=== PATIENT | female | born 1955 | race Caucasian/White ===

== ENCOUNTER 2023-02-25 12:59 | Emergency (ER) | payer MEDICARE, OTHER ==
[2023-02-25] MEDS ORDERED: Aspirin 81 MG Tab.Chew ONE (13:11)
[2023-02-25 13:12] LABS: BASOPHILS ABSOLUTE AUTO 0.05 10^3/uL (0.00-0.10); BASOPHILS PERCENT AUTO 0.6 % (0.0-1.0); EOSINOPHILS ABSOLUTE AUTO 0.31 10^3/uL (0.10-0.30); EOSINOPHILS PERCENT AUTO 3.9 % (1.0-3.0); HEMATOCRIT 42.5 % (37.0-47.0); HEMOGLOBIN 13.8 g/dL (12.0-16.0); IMMATURE GRAN ABSOLUTE AUTO 0.04 10^3/uL (0.00-0.50); IMMATURE GRAN PERCENT AUTO 0.5 % (0.0-5.0); LYMPHOCYTES PERCENT AUTO 21.7 % (20.0-40.0); MEAN CORPUSCULAR HEMOGLOBIN 28.5 pg (27.0-31.0); MEAN CORPUSCULAR HGB CONC 32.5 g/dL (32.0-36.0); MEAN CORPUSCULAR VOLUME 87.6 fL (82.0-92.0); MEAN PLATELET VOLUME 10.6 fL (7.4-10.4); MONOCYTES ABSOLUTE AUTO 0.93 10^3/uL (0.10-0.80); MONOCYTES PERCENT AUTO 11.8 % (2.0-8.0); NEUTROPHILS ABSOLUTE AUTO 4.82 10^3/uL (2.50-7.00); NEUTROPHILS PERCENT AUTO 61.5 % (50.0-70.0); PLATELET COUNT,PLT 393 10^3/uL (150-400); RED BLOOD CELL COUNT 4.85 10^6/uL (3.80-5.50); RED CELL DISTRIBUTION WIDTH 13.7 % (11.5-14.5); WHITE BLOOD CELL COUNT,WBC 7.85 10^3/uL (5.00-10.00)
[2023-02-25] MEDS ORDERED: Aspirin 81 MG Tab.Chew PO ONE (13:12)
[2023-02-25] MEDS: Nitroglycerin 0.4 MG Tab.SL SL PRN ×2 (13:15→13:33)
[2023-02-25 13:30] LABS: ALANINE AMINOTRANSFERASE,ALT 37 U/L (14-63); ALBUMIN 3.98 g/dL (3.40-5.00); ALKALINE PHOSPHATASE 86 U/L (46-116); ANION GAP 12.3 mmol/L (5-15); ASPARTATE AMNIOTRANSFERASE,AST 28 U/L (15-37); B-TYPE NATRIURETIC PEPTIDE,BNP 47 pg/mL (0-100); BILIRUBIN TOTAL 0.3 mg/dL (0.2-1.0); BLOOD UREA NITROGEN,BUN 20 mg/dL (7-18); CALCIUM 9.2 mg/dL (8.7-10.3); CARBON DIOXIDE,CO2 27.3 mmol/L (21.0-32.0); CHLORIDE,CL 103 mmol/L (98-107); CREATININE 0.79 mg/dL (0.51-1.17); ESTIMATED GFR 83 mL/min (>=60); GLUCOSE RANDOM 124 mg/dL (70-140); POTASSIUM,K 4.6 mmol/L (3.5-5.1); PROTEIN TOTAL,TP 7.3 g/dL (6.4-8.2); SODIUM,NA 138 mmol/L (136-145)
[2023-02-25] MEDS: Nitroglycerin 0.4 MG Tab.SL ONE ×2 (13:33→13:43)
[2023-02-25 13:53] VITALS: PULSE 82
[2023-03-01 13:51] VITALS: BP 134/75
== END 2023-02-25 15:48 | disposition home or self-care (01) ==
LOC: KA.ED 12:59 → MERGE 12:59 → KA.ED 15:48
DX: R07.89 Other chest pain (principal); M54.6 Pain in thoracic spine; I44.0 Atrioventricular block, first degree
CPT/HCPCS: 36415; 71045; 80053; 83880; 84484; 85025; 93010; 99284; 99285; A9270-GY